=== PATIENT | female | born 1970 | race Caucasian/White ===

== ENCOUNTER 2020-12-28 13:49 | Observation (INO) | payer OTHER, SELFPAY ==
[2020-12-28] MEDS ORDERED: Sodium Chloride 0.9% 1,000 ML ONE (14:23)
[2020-12-28] MEDS ORDERED: Lorazepam 0.5 MG TAB ONE (14:23)
[2020-12-28 14:30] LABS: #Basophils 0.1 thou/uL (0.0-0.2); #Eosinphils 0.7 thou/uL (0.0-0.7); #Lymphocytes 2.4 thou/uL (1.20-3.40); #Monocytes 0.5 thou/uL (0.11-0.59); #Neutrophils 6.7 thou/uL (1.40-6.50); %Basophils 1.3 % (0.0-1.0); %Eosinophils 6.6 % (0.0-10.0); %Lymphocytes 23.3 % (21.0-51.0); %Monocytes 4.6 % (0.0-10.0); %Neutrophils 64.3 % (42.0-75.0); Hemoglobin 13.6 g/dL (12.0-16.0); Mean Corpuscular HGB CONC 32.6 g/dL (32.0-36.0); Mean Corpuscular Hemoglobin 29.5 pg (27.0-31.0); Mean Corpuscular Volume 90.7 fL (78.0-98.0); Mean Platelet Volume 6.6 fL (7.4-10.4); Platelet Count 413 thou/uL (130-400); White Blood Cell (WBC) Count 10.4 thou/uL (4.8-10.8)
[2020-12-28 14:47] LABS: ALT (SGPT) 15 U/L (8-55); AST (SGOT) 18 U/L (5-34); Alkaline Phosphatase 84 U/L (40-110); Anion Gap 14 mmol/L (10-20); BUN (Urea Nitrogen) 7 mg/dL (9.8-20.1); Bilirubin, Total 0.3 mg/dL (0.2-1.2); Calc. Creatinine Clearance 0 mL/min (70-130); Calcium 9.3 mg/dL (7.8-10.44); Carbon Dioxide 25 mmol/L (22-29); Chloride 104 mmol/L (98-107); Globulin 3.7 g/dL (2.4-3.5); Glucose 148 mg/dL (70-105); Potassium 3.4 mmol/L (3.5-5.1); Protein, Total 7.7 g/dL (6.0-8.3); Sodium 140 mmol/L (136-145)
[2020-12-28 15:22] LABS: SARS-CoV-2 NAA Rapid Test Not Detected (NotDetected)
[2020-12-28 17:18] LABS: Lactic Acid 3.4 mmol/L (0.5-2.2)
[2020-12-28] MEDS ORDERED: Benztropine 1 MG TAB ONE (17:35)
[2020-12-28] MEDS ORDERED: Dexamethasone 20 MG/5 ML VIAL ONE (17:56)
[2020-12-28 17:59] LABS: Bilirubin Negative (Negative); Blood, Urine Negative (Negative); Clarity Clear (Clear); Glucose, Urine (Dipstick) Negative (Negative); Ketone, Urine Negative (Negative); Leukocyte Negative (Negative); Nitrite Negative (Negative); Protein, Urine (Dipstick) Negative (Neg-Trace); Specific Gravity, Urine 1.025 (1.005-1.030); Urobilinogen 0.2 mg/dL (Less than 2); pH, Urine 5.5 (5.0-9.0)
[2020-12-28 18:54] VITALS: BMI 24.1
[2020-12-28] MEDS ORDERED: Acetaminophen 325 MG TAB PO PRN (20:45)
[2020-12-28] MEDS ORDERED: Ondansetron PF 4 MG/2 ML Vial IVP PRN (20:45)
[2020-12-28] MEDS ORDERED: Sodium Chloride 0.9% 1,000 ML IV SCH (20:45)
[2020-12-28] MEDS ORDERED: Ondansetron ODT 4 MG TAB SL PRN (20:45)
[2020-12-28] MEDS: Sodium Chloride 0.9% 1,000 ML IV SCH (21:08)
[2020-12-28] MEDS: traZODone HCl 50 MG TAB PO SCH (21:08)
[2020-12-28] MEDS: Benztropine 1 MG TAB PO SCH (21:09)
[2020-12-28] MEDS: hydrOXYzine 25 MG TAB PO PRN (21:09)
[2020-12-28] MEDS: Albuterol Sulfate 2.5 mg/3 ml Neb NEB PRN (21:18)
[2020-12-28 23:15] LABS: Lactic Acid 3.9 mmol/L (0.5-2.2)
[2020-12-29] MEDS: Albuterol Sulfate 2.5 mg/3 ml Neb NEB PRN (01:07)
[2020-12-29] MEDS: Sodium Chloride 0.9% 1,000 ML IV SCH ×4 (03:17→23:14)
[2020-12-29 07:01] LABS: #Lymphocytes 0.7 thou/uL (1.20-3.40); #Neutrophils 6.7 thou/uL (1.40-6.50); %Basophils 0.3 % (0.0-1.0); %Monocytes 0.6 % (0.0-10.0); %Neutrophils 90.1 % (42.0-75.0); Hemoglobin 11.3 g/dL (12.0-16.0); Mean Corpuscular HGB CONC 31.1 g/dL (32.0-36.0); Mean Corpuscular Hemoglobin 28.9 pg (27.0-31.0); Mean Platelet Volume 6.6 fL (7.4-10.4); Platelet Count 306 thou/uL (130-400); RBC Distribution Width 14.3 % (11.5-14.5); White Blood Cell (WBC) Count 7.5 thou/uL (4.8-10.8)
[2020-12-29 07:08] LABS: Lactic Acid 6.2 mmol/L (0.5-2.2)
[2020-12-29] MEDS: Benztropine 1 MG TAB PO SCH ×3 (08:22→20:31)
[2020-12-29] MEDS: Escitalopram Oxalate 20 mg Tablet PO SCH (08:22)
[2020-12-29] MEDS ORDERED: FLU VACC QS2021-22(6MOS UP)/PF 60 MCG/0.5 ML SYRINGE IM ONE (09:00)
[2020-12-29 10:09] LABS: Lactic Acid 6.6 mmol/L (0.5-2.2)
[2020-12-29 12:26] LABS: Lactic Acid 2.7 mmol/L (0.5-2.2)
[2020-12-29] MEDS: hydrOXYzine 25 MG TAB PO PRN ×2 (15:15→20:34)
[2020-12-29 15:28] LABS: Lactic Acid 2.9 mmol/L (0.5-2.2)
[2020-12-29] MEDS: Famotidine 20 MG TAB PO SCH (20:30)
[2020-12-29] MEDS: traZODone HCl 50 MG TAB PO SCH (20:30)
[2020-12-30 06:39] LABS: #Basophils 0.1 thou/uL (0.0-0.2); #Eosinphils 0.2 thou/uL (0.0-0.7); #Lymphocytes 3.8 thou/uL (1.20-3.40); #Monocytes 0.6 thou/uL (0.11-0.59); #Neutrophils 8.3 thou/uL (1.40-6.50); %Basophils 0.6 % (0.0-1.0); %Eosinophils 1.7 % (0.0-10.0); %Lymphocytes 29.4 % (21.0-51.0); %Monocytes 4.3 % (0.0-10.0); %Neutrophils 64.1 % (42.0-75.0); Hemoglobin 11.7 g/dL (12.0-16.0); Mean Corpuscular HGB CONC 31.7 g/dL (32.0-36.0); Mean Corpuscular Hemoglobin 29.4 pg (27.0-31.0); Mean Corpuscular Volume 92.7 fL (78.0-98.0); Mean Platelet Volume 6.9 fL (7.4-10.4); Platelet Count 287 thou/uL (130-400); RBC Distribution Width 14.4 % (11.5-14.5); Red Blood Cell (RBC) Count 3.97 mill/uL (4.20-5.40); White Blood Cell (WBC) Count 12.9 thou/uL (4.8-10.8)
[2020-12-30 06:55] LABS: ALT (SGPT) 12 U/L (8-55); AST (SGOT) 11 U/L (5-34); Albumin 3.3 g/dL (3.5-5.0); Alkaline Phosphatase 78 U/L (40-110); Anion Gap 11 mmol/L (10-20); BUN (Urea Nitrogen) 8 mg/dL (9.8-20.1); Bilirubin, Total 0.2 mg/dL (0.2-1.2); Calc. Creatinine Clearance 100 mL/min (70-130); Calcium 8.6 mg/dL (7.8-10.44); Carbon Dioxide 25 mmol/L (22-29); Chloride 107 mmol/L (98-107); Globulin 3.1 g/dL (2.4-3.5); Glucose 150 mg/dL (70-105); Potassium 3.5 mmol/L (3.5-5.1); Protein, Total 6.4 g/dL (6.0-8.3); Sodium 139 mmol/L (136-145)
[2020-12-30] MEDS: Escitalopram Oxalate 20 mg Tablet PO SCH (08:08)
[2020-12-30] MEDS: Famotidine 20 MG TAB PO SCH ×2 (08:08→20:11)
[2020-12-30] MEDS: Benztropine 1 MG TAB PO SCH ×3 (08:08→20:12)
[2020-12-30] MEDS: hydrOXYzine 25 MG TAB PO PRN ×2 (08:09→20:11)
[2020-12-30] MEDS: Sodium Chloride 0.9% 1,000 ML IV SCH ×2 (09:00→12:23)
[2020-12-30] MEDS ORDERED: Sodium Chloride 0.9% 10 ML ONE (14:08)
[2020-12-30] MEDS: traZODone HCl 50 MG TAB PO SCH (20:11)
[2020-12-30] MEDS: Benzonatate 100 MG CAP PO PRN (20:12)
[2020-12-31] MEDS: Sodium Chloride 0.9% 1,000 ML IV SCH (02:24)
[2020-12-31] MEDS: Benzonatate 100 MG CAP PO PRN (05:15)
[2020-12-31 06:34] LABS: #Basophils 0.1 thou/uL (0.0-0.2); #Eosinphils 0.5 thou/uL (0.0-0.7); #Lymphocytes 3.7 thou/uL (1.20-3.40); #Monocytes 0.4 thou/uL (0.11-0.59); #Neutrophils 4.3 thou/uL (1.40-6.50); %Basophils 1.3 % (0.0-1.0); %Eosinophils 5.6 % (0.0-10.0); %Lymphocytes 40.5 % (21.0-51.0); %Monocytes 4.7 % (0.0-10.0); %Neutrophils 47.8 % (42.0-75.0); Hemoglobin 11.4 g/dL (12.0-16.0); Mean Corpuscular HGB CONC 31.5 g/dL (32.0-36.0); Mean Corpuscular Hemoglobin 29.2 pg (27.0-31.0); Mean Corpuscular Volume 92.7 fL (78.0-98.0); Mean Platelet Volume 6.5 fL (7.4-10.4); Platelet Count 309 thou/uL (130-400); RBC Distribution Width 14.2 % (11.5-14.5); Red Blood Cell (RBC) Count 3.89 mill/uL (4.20-5.40); White Blood Cell (WBC) Count 9.1 thou/uL (4.8-10.8)
[2020-12-31 06:38] LABS: Lactic Acid 1.6 mmol/L (0.5-2.2)
[2020-12-31] MEDS: Escitalopram Oxalate 20 mg Tablet PO SCH (08:19)
[2020-12-31] MEDS: Famotidine 20 MG TAB PO SCH (08:19)
[2020-12-31] MEDS: Benztropine 1 MG TAB PO SCH (08:19)
[2020-12-31] MEDS: hydrOXYzine 25 MG TAB PO PRN (08:21)
[2020-12-31 12:33] VITALS: BP 128/60; TEMP 98.3
[2020-12-31 13:24] LABS: ANA Symphony (Qualitative) Negative (Negative); ANA Symphony (Quantitative) 0.1 Ratio (< 0.7 Negative); dsDNA IgG Antibody Less than 0.5 IU/mL (<10 Negative)
== END 2020-12-31 13:17 | disposition home or self-care (01) ==
LOC: NAV ERS 13:49 → NAV ACUTE 18:02
PROVIDERS: ADMIT Family Medicine; ATTEND Family Medicine
DX: J40 Bronchitis, not specified as acute or chronic (principal); E87.2 Acidosis; G43.909 Migraine, unspecified, not intractable, without status migrainosus; G24.01 Drug induced subacute dyskinesia; F17.210 Nicotine dependence, cigarettes, uncomplicated; F41.9 Anxiety disorder, unspecified; F32.A Depression, unspecified; R42 Dizziness and giddiness; Z20.822 Contact with and (suspected) exposure to COVID-19; Z88.0 Allergy status to penicillin; Z88.1 Allergy status to other antibiotic agents; Z88.2 Allergy status to sulfonamides; Z88.5 Allergy status to narcotic agent; Z88.8 Allergy status to other drugs, medicaments and biological substances; Z91.018 Allergy to other foods; Z91.011 Allergy to milk products; Z91.038 Other insect allergy status; Z79.899 Other long term (current) drug therapy; Z90.710 Acquired absence of both cervix and uterus; Z90.49 Acquired absence of other specified parts of digestive tract
CPT/HCPCS: 36415; 71046; 80053; 81003; 82274; 82550; 83605; 83880; 84484; 85025; 85379; 85652; 86038; 86140; 86225; 87040; 90471; 90686; 93005; 94640; G0008; G0378; J1100; J7050; J7611; J7620; U0002

== ENCOUNTER 2021-01-18 05:30 | Emergency (ER) | payer OTHER, SELFPAY ==
[2021-01-18] MEDS ORDERED: Albuterol Sulfate 2.5 mg/0.5 ml Neb ONE (05:52)
[2021-01-18 06:21] LABS: #Basophils 0.2 thou/uL (0.0-0.2); #Eosinphils 0.8 thou/uL (0.0-0.7); #Lymphocytes 3.8 thou/uL (1.20-3.40); #Monocytes 0.8 thou/uL (0.11-0.59); %Basophils 1.7 % (0.0-1.0); %Eosinophils 6.1 % (0.0-10.0); %Monocytes 5.8 % (0.0-10.0); %Neutrophils 58.4 % (42.0-75.0); Hemoglobin 13.5 g/dL (12.0-16.0); Mean Corpuscular HGB CONC 32.7 g/dL (32.0-36.0); Mean Corpuscular Hemoglobin 30.2 pg (27.0-31.0); Mean Corpuscular Volume 92.2 fL (78.0-98.0); Mean Platelet Volume 6.5 fL (7.4-10.4); Platelet Count 495 thou/uL (130-400); Red Blood Cell (RBC) Count 4.47 mill/uL (4.20-5.40); White Blood Cell (WBC) Count 13.7 thou/uL (4.8-10.8)
[2021-01-18] MEDS ORDERED: Sodium Chloride 0.9% 1,000 ML ONE (06:24)
[2021-01-18] MEDS ORDERED: methylPREDNISolone Sod Succ/PF 125 MG/2 ML VIAL ONE (06:32)
[2021-01-18 06:35] LABS: ALT (SGPT) 14 U/L (8-55); AST (SGOT) 19 U/L (5-34); Albumin 4.2 g/dL (3.5-5.0); Alkaline Phosphatase 94 U/L (40-110); Anion Gap 17 mmol/L (10-20); BUN (Urea Nitrogen) 13 mg/dL (9.8-20.1); Bilirubin, Total 0.2 mg/dL (0.2-1.2); Calc. Creatinine Clearance 0 mL/min (70-130); Calcium 9.8 mg/dL (7.8-10.44); Carbon Dioxide 22 mmol/L (22-29); Chloride 105 mmol/L (98-107); Globulin 4.1 g/dL (2.4-3.5); Glucose 120 mg/dL (70-105); Protein, Total 8.3 g/dL (6.0-8.3); Sodium 140 mmol/L (136-145)
[2021-01-18 06:53] LABS: Magnesium 1.8 mg/dL (1.6-2.6)
== END 2021-01-18 08:15 | disposition home or self-care (01) ==
LOC: NAV ERS 05:30
DX: J45.901 Unspecified asthma with (acute) exacerbation (principal); F17.290 Nicotine dependence, other tobacco product, uncomplicated; G43.909 Migraine, unspecified, not intractable, without status migrainosus; Z79.899 Other long term (current) drug therapy
CPT/HCPCS: 36415; 71045; 80053; 83735; 84484; 85025; 85379; 93005; 94760; 96374; J2930; J7050; J7611; J7620